=== PATIENT | male | born 1975 | race Two or more races ===

== ENCOUNTER 2025-02-09 22:39 | Emergency (ER) | payer MEDICAID, OTHER ==
[~2025-02-09] VITALS: Ht 162.6 cm; Wt 70.0 kg
[2025-02-09 23:33] VITALS: BP 157/93; PULSE 110; RESP 16; TEMP 98.1; O2SAT 98
[2025-02-09] MEDS: KETOROLAC TROMETH 60MG/2ML VIAL IM ONE (23:51)
[2025-02-09] MEDS: HYDROcodone-ACET 5/325MG TAB PO ONE (23:51)
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
[2025-02-10] MEDS ORDERED: IBUP-1456 PO (00:40)
[2025-02-10] MEDS ORDERED: TIZA-142 PO (00:40)
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
== END 2025-02-10 00:44 | disposition home or self-care (01) ==
LOC: ER 22:39 → EDBD 22:39 → ER 02-10 00:44
DX: S33.5XXA Sprain of ligaments of lumbar spine, initial encounter (principal); S13.4XXA Sprain of ligaments of cervical spine, initial encounter; S29.012A Strain of muscle and tendon of back wall of thorax, initial encounter; V89.2XXA Person injured in unspecified motor-vehicle accident, traffic, initial encounter; Y93.89 Activity, other specified; Y92.410 Unspecified street and highway as the place of occurrence of the external cause; Y99.8 Other external cause status
CPT/HCPCS: 72125; 72128; 72131; 96372; 99285; J1885

== ENCOUNTER 2025-02-10 14:19 | Emergency (ER) | payer MEDICAID, OTHER ==
[~2025-02-10] VITALS: Ht 162.6 cm; Wt 68.2 kg
[~2025-02-10 14:19] MED LIST: IBUP-1456 PO; TIZA-142 PO
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
[2025-02-10] MEDS: LORazepam 0.5 MG TAB PO ONE (15:14)
[2025-02-10 15:17] LABS: Basophils # (auto) 0 10 ^3/uL (0-0.2); Basophils % (auto) 0.2 % (0.0-2.0); Eosinophils # (auto) 0.1 10 ^3/uL (0-0.8); Eosinophils % (auto) 1.6 % (0.0-7.0); Hematocrit 45.6 % (41.0-53.0); Hemoglobin 15.3 g/dL (13.5-17.5); Lymphocytes # (auto) 1.4 10 ^3/uL (0.4-5.4); Lymphocytes % (auto) 18.4 % (10.0-50.0); Mean Corpuscular Hemoglobin 26.9 pg (28.0-32.0); Mean Corpuscular Hgb Conc. 33.5 g/dL (32.0-36.0); Mean Corpuscular Volume 80.3 fL (80.0-100.0); Monocytes # (auto) 0.6 10 ^3/uL (0-1.3); Monocytes % (auto) 7.2 % (0.0-12.0); Neutrophils # (auto) 5.7 10 ^3/uL (1.6-8.6); Neutrophils % (auto) 72.6 % (37.0-80.0); Nucleated Red Blood Cells % 0.1 %; Platelet Count (auto) 218 10^3/uL (140-450); Red Blood Cells 5.68 10^6/uL (4.5-5.90); Red Cell Distribution Width 14.9 % (11.8-14.3); White Blood Cell 7.8 10^3/uL (4.4-10.8)
[2025-02-10 15:23] LABS: Chloride 102 mmol/L (98-107); Potassium 4.6 mmol/L (3.5-5.1); Sodium 136 mmol/L (136-145)
[2025-02-10 15:24] LABS: Anion Gap 6 (5-15); Calcium 9.8 mg/dL (8.7-10.4); Carbon Dioxide 28 mmol/L (20-31)
[2025-02-10 15:29] LABS: BUN/Creatinine Ratio 17.1 (10.0-20.0); Blood Urea Nitrogen 20 mg/dL (9-23)
[2025-02-10 15:31] LABS: Glucose 216 mg/dL (74-106)
[2025-02-10 16:46] VITALS: BP 152/78; PULSE 100; RESP 16; TEMP 98.1; O2SAT 98
== END 2025-02-10 16:47 | disposition home or self-care (01) ==
LOC: ER 14:19
DX: E11.65 Type 2 diabetes mellitus with hyperglycemia (principal); I10 Essential (primary) hypertension; F41.9 Anxiety disorder, unspecified
CPT/HCPCS: 36415; 80048; 84484; 85025